=== PATIENT | female | born 1955 | race Caucasian/White ===

== ENCOUNTER 2020-04-21 10:11 | Outpatient (REF) | payer OTHER, SELFPAY | END 2020-04-21 10:12 | disposition home or self-care (01) | LOC: HO.HOSX 10:11 | PROVIDERS: Visit Provider Orthopaedic Surgery | DX: Z13.89 Encounter for screening for other disorder (principal) ==

== ENCOUNTER 2020-05-26 07:34 | Outpatient (REF) | payer OTHER, SELFPAY ==
--- NOTE | ~2020-05-26 | XR_ITS ---
EXAMINATION: XR KNEE, RIGHT CLINICAL INFORMATION: Pain in right knee. COMPARISON: Right knee 08/17/2016. TECHNIQUE: Four views of the right knee. FINDINGS: There is loss of tricompartment joint space with mild superior anterior patellar enthesophyte. There is no abnormal joint effusion. No loose body is seen. No visible acute fracture or dislocation. There is diffuse osteopenia. XR/XR knee RT 3V IMPRESSION: Diffuse osteopenia. No acute fracture or dislocation. There is an anterior superior patellar enthesophyte.
== END 2020-05-26 07:35 | disposition home or self-care (01) ==
LOC: HO.HOSX 07:34
PROVIDERS: Visit Provider Orthopaedic Surgery
DX: M17.11 Unilateral primary osteoarthritis, right knee (principal); M25.561 Pain in right knee; M25.562 Pain in left knee; I10 Essential (primary) hypertension; Z99.3 Dependence on wheelchair
CPT/HCPCS: 73562